=== PATIENT | male | born 1955 | race Caucasian/White ===

== ENCOUNTER 2019-01-26 08:00 | Emergency (ER) | payer BC ==
[~2019-01-26] VITALS: Ht 177.8 cm; Wt 84.4 kg
[~2019-01-26 08:00] MED LIST: CRESTOR40 MG
--- OUTSIDE RECORDS SUMMARY | 2019-01-26 08:02 | XMS REPORT | Clinical Summary ---
Author Author [facility] Organization [facility] Address Unknown Phone Unavailable Care Team Providers Care Renderer Name Role Phone Reginaldo Adan MD PCP Unavailable Allergies Comments Active Allergy Reactions Severity Noted Date Cold sweats Cyclobenzaprine Other (See 06/04/2018 Comments) Medications End Date Status Medication Sig Dispensed Refills Start Date Active atorvastatin (LIPITOR) 40 Take 40 mg by 0 MG tablet mouth daily. Active temazepam (RESTORIL) 15 Take 15 mg by 0 mg capsule mouth nightly as needed for sleep. Active testosterone (ANDROGEL) 1 Place 50 mg 0 % (25 mg/2.5gram) gel in on the skin packet daily. Active Problems No known active problems Encounters Care Team Description Date Type Specialty Julio C Miranda MD 06/04/2018 Anesthesia General Surgery Event Nikhil Guzman MD Left Femoral/Obturator Coolies 06/04/2018 Surgery General Surgery Nikhil Guzman MD 06/04/2018 Hospital General Surgery Encounter after 01/25/2018 Social History Date Tobacco Use Types Packs/Day Years Used Never Smoker Smokeless Tobacco: Never Used Alcohol Use Drinks/Week oz/Week Comments No Sex Assigned at Date Recorded Not on file Industry Job Start Date Occupation Not on file Not on file Not on file Travel End Travel History Travel Start No recent travel history available. Last Filed Vital Signs Time Taken Vital Sign Reading 06/04/2018 2:05 PM CDT Blood Pressure 119/69 06/04/2018 2:05 PM CDT Pulse 51 06/04/2018 1:40 PM CDT Temperature 36.3 C (97.3 F) 06/04/2018 2:05 PM CDT Respiratory Rate 12 06/04/2018 2:05 PM CDT Oxygen Saturation 98% - Inhaled Oxygen - Concentration 06/04/2018 11:45 AM CDT Weight 85.3 kg (188 lb) 06/04/2018 11:45 AM CDT Height 177.8 cm (5' 10") 06/04/2018 11:45 AM CDT Body Mass Index 26.98 Plan of Treatment Not on file Implants Device Identifier Shelf Expiration Date Model / Serial / Lot Implanted Type Area Manufactur er 12/20/2021 MCK2 17 100 [id number] / [id number] / [id number] Coolief Multi-Cooled Radiofrequency IPM N/A: N/A I and love and you Kit 100-4 - [id number] - IMPLANT HEALTH [id number] DEVICES Implanted: Qty: 1 on 06/04/2018 by Nikhil Guzman MD Procedures Comments Procedure Name Priority Date/Time Associated Diagnosis RADIOFREQUENCY THERMAL 06/04/2018 Degenerative joint COAGULATION, NERVE, 12:30 PM CDT disease INTERCOSTAL Special Needs BMI 28.0 after 01/25/2018 Results Not on fileafter 01/25/2018 Insurance Payer Benefit Subscriber ID Type Phone Address Plan / Group BCBS BCBS xxxxxxxxxxxxxxx PPO CHOICE PPO/[employer] PPO Advance Directives Patient has advance care planning documents on file. For more information, ganesh navarrete contact: Wilbert Pinedo [address] [place] [address]
--- OUTSIDE RECORDS SUMMARY | 2019-01-26 08:02 | XMS REPORT | Continuity of Care Document ---
Author Author Ilda mckeon Organization Interface Address Unknown Phone Unavailable Problems Problem Status Onset Date Classification Date Reported Comments Source M25.561 - PAIN IN RIGHT KNEE Active 04/18/2016 [facility] SHOULDER Active [facility] Medications Medication Details Route Status Patient Instructions Ordering Provider Order Date Source Allergies, Adverse Reactions, Alerts Substance Category Reaction Severity Reaction type Status Date Reported Comments Source Immunizations Immunization Date Given Site Status Last Updated Comments Source Results Order Name Results Value Reference Range Date Interpretation Comments Source Knee wo contrast MRI Knee wo contrast MRI EXAM: MRI of the right knee without contrast. HISTORY: Right knee pain, acute pain of right knee, avulsion fracture COMPARISON: Right knee x-rays on 04/18/2016 and 10/27/2005 TECHNIQUE: Multiplanar, multisequence MRI of the right knee without contrast. FINDINGS: Intercondylar notch: There is mild to moderate degeneration or sprain of the anterior cruciate ligament. There appears to be a small intraligamentous ganglion cyst along the anterior cruciate ligament suggesting degeneration rather than sprain. There is also mild degeneration or sprain of the proximal posterior cruciate ligament. There is no tear of the anterior cruciate ligament or posterior cruciate ligament. Collateral ligaments: The medial collateral ligament is intact. There is mild degeneration or sprain of the proximal lateral collateral ligament. There is no tear of the lateral collateral ligament. Medial compartment: There is intrasubstance degeneration in the posterior horn and body of the medial meniscus. There is no medial meniscal tear. There is high-grade cartilage loss along the central weightbearing portion of the medial femoral condyle. There is no subchondral marrow edema in the medial compartment. Lateral compartment: The lateral meniscus is intact. There is no chondral defect or subchondral marrow edema in the lateral compartment. The posteromedial and posterolateral corner structures are intact. Patellofemoral compartment: The patellar and quadriceps tendons are intact. There is partial-thickness cartilage loss and mild chondral fraying along the medial patellar facet and median patellar eminence. There is also high-grade cartilage loss along the inferomedial trochlea with minimal subchondral bone marrow edema. Other findings: There is a small to moderate joint effusion with mild synovitis. Trace fluid decompresses into the semimembranosus/gastrocnemius bursa. There is an osteochondral body anterior to the distal anterior cruciate ligament measuring up to 1 cm corresponding to the calcification seen on the prior x-ray. This is felt to represent an osteochondral body rather than an old avulsion fracture and was present on the prior x-ray on 10/27/2005. There is a suprapatellar plica. IMPRESSION: 1. Mild to moderate degeneration or sprain of the anterior cruciate ligament. There appears to be a small intraligamentous ganglion cyst along the anterior cruciate ligament suggesting degeneration rather than sprain. There is also mild degeneration or sprain of the proximal posterior cruciate ligament. There is also mild degeneration or sprain of the proximal lateral collateral ligament. There is no ligament tear. 2. No meniscal tear. There is intrasubstance degeneration in the posterior horn and body of the medial meniscus. 3. High-grade cartilage loss along the central weightbearing portion of the medial femoral condyle. 4. Partial thickness cartilage loss and mild chondral fraying along the medial patellar facet and median patellar eminence. There is also high-grade cartilage loss along the inferomedial trochlea with minimal subchondral bone marrow edema. 5. Small to moderate joint effusion with mild synovitis. There is an osteochondral body anterior to the distal anterior cruciate ligament measuring up to 1 cm corresponding to the calcification seen on the prior x-ray. This is felt to represent an osteochondral body rather than an old avulsion fracture and was present on the prior x-ray on 10/27/2005. 04/26/2016 - - Read by: Yaw Ospina MD Dictated Date/time: 04/26/16 15:44 Electronically Signed by: Yaw Ospina MD 04/26/16 15:56 FINAL REPORT [facility] [place] Knee series 3 views DX Knee series 3 views DX EXAM: XR Knee series 3 views DX DATE: 04/18/2016 1:30 PM CDT INDICATION: M25.561 Pain in right knee Pain. COMPARISON: 2004 TECHNIQUE: AP, oblique and lateral projections of right knee. DISCUSSION: Small avulsion fragment is present along the intercondylar notch region. This is seen to be more displaced compared to the previous examination. Satisfactory alignment of the joint. No soft tissue abnormality is identified. . IMPRESSION: Avulsion fracture from the intercondylar notch region likely represents an avulsion fracture secondary to subacute to chronic avulsion from an anterior cruciate ligament attachment. 04/18/2016 - - Read by: Parmjit Gillette MD Dictated Date/time: 04/18/16 15:17 Electronically Signed by: Parmjit Gillette MD 04/18/16 15:19 FINAL REPORT [facility] Vital Signs Vital Sign Value Date Comments Source Encounters Location Location Details Encounter Type Encounter Number Reason For Visit Attending Provider ADM Date DC Date Status Source [facility] [place] [facility] [id number] José Ariadne 04/19/2015 05/19/2015 [facility] [place] [facility] [id number] Reginaldo Adan 04/18/2016 04/19/2016 [facility] [place] [facility] [id number] Reginaldo Adan 04/26/2016 04/27/2016 [facility] [place] Procedures Procedure Code Date Perfomer Comments Source
--- OUTSIDE RECORDS SUMMARY | 2019-01-26 08:03 | XMS REPORT | Summary of Care ---
Author Author [facility] [place] Organization [facility] [place] Address Unknown Phone Unavailable Encounter HQ Encntr_kristen(FIN) [id number] Date(s): 04/26/16 - 04/26/16 [facility] [place] [address] [facility] [address] [place] [address] [phone] Discharge Disposition: Home Attending Physician: Reginaldo Adan MD Vital Signs No data available for this section Problem List No data available for this section Allergies, Adverse Reactions, Alerts Substance Reaction Severity Status NKDA Active Medications No data available for this section Results No data available for this section Immunizations No data available for this section Procedures No data available for this section Social History No data available for this section Assessment and Plan No data available for this section
--- OUTSIDE RECORDS SUMMARY | 2019-01-26 08:03 | XMS REPORT | Summary of Care ---
Author Author Constance Hoyt LVN Organization Unknown Address [facility] Phone Unavailable Care Team Providers Care Supervisor Inspecting Name Role Phone Constance Hoyt LVN Unavailable Unavailable MATHEW PITT N.P. Unavailable Unavailable HAWA GALICIA M.D. Unavailable Unavailable GRAYSON ORTIZ [facility], [place] LUI Unavailable Unavailable Unavailable Unavailable Functional Status Name Dates Details Functional status health issues are not documented Status: Name Dates Details Cognitive status health issues are not documented Status: Problems Name Dates Details Seasonal allergic rhinitis due to pollen (477.0, J30.1) Status: Active Encounter for screening for malignant neoplasm of prostate (V76.44, Z12.5) Status: Active History of Bursitis of left hip, unspecified bursa (726.5, M70.72) Status: Resolved Anemia (285.9, D64.9) Status: Active Bradycardia (427.89, R00.1) Status: Active Hiatal hernia (553.3, K44.9) Status: Active long-term use of drug (V58.69, Z79.899) Status: Active Psychophysiological insomnia (307.42, F51.04) Status: Active Skin atrophy (701.9, L90.9) Status: Active Flu vaccine need (V04.81, Z23) Status: Active Low back pain, episodic (724.2, M54.5) Status: Active Chronic bilateral low back pain with bilateral sciatica (724.2, M54.42) Status: Active Anxiety disorder (300.00, F41.9) Status: Active Testicular hypofunction (257.2, E29.1) Status: Active Colon cancer screening (V76.51, Z12.11) Status: Active Mixed hyperlipidemia (272.2, E78.2) Status: Active Medications Name Dates Details Atorvastatin Calcium 40 MG Oral Tablet TAKE 1 TABLET DAILY AT BEDTIME Quantity: 1 GRAYSON Bell, HAWA * Start : 28-Aug-2014 Active 90 Tablet Bottle Temazepam 30 MG Oral Capsule TAKE 1 CAPSULE AT BEDTIME NEEDED. * Quantity: 90 Refills: 0 HAAW GALICIA M.D. Active AndroGel 40.5 MG/2.5GM (1.62%) Transdermal Gel * Refills: 0 Active Naproxen 500 MG Oral Tablet TAKE 1 TABLET TWICE DAILY. CON"T DOSING FOR 3-5 DAYS BEYOND PAIN RELIEF OR 3-4 W EEKS MAX * Quantity: 60 Refills: 5 HAWA GALICIA M.D. * Start : 06-Jul-2018 Active traMADol HCl - 50 MG Oral Tablet 1-2 PO Q6 hrs PRN * Quantity: 80 Refills: 2 PITT N.P.MATHEW * Start : 06-Jul-2018 Active Escitalopram Oxalate 10 MG Oral Tablet TAKE 1 TABLET DAILY. * Quantity: 30 Refills: 3 HAWA GALICIA M.D. * Start : 06-Oct-2018 Active Allergies and Adverse Reactions Name Dates Details Flexeril TABS (Allergy) Status: Active Past Medical History Name Dates Details History of abdominal pain (V13.89, Z87.898) Status: Resolved History of acne (V13.3, Z87.2) Status: Resolved History of Acute bronchitis and bronchiolitis (466.0, J20.9) Status: Resolved History of Acute bronchitis due to infection (466.0, J20.8) Status: Resolved History of Acute pain of left knee (719.46, M25.562) Status: Resolved History of Acute pain of right knee (719.46, M25.561) Status: Resolved History of Acute upper respiratory infection (465.9, J06.9) Status: Resolved History of avulsion fracture (V15.51, Z87.81) Status: Resolved History of Back strain, initial encounter (847.9, S39.012A) Status: Resolved History of Bursitis of left hip, unspecified bursa (726.5, M70.72) Status: Resolved History of Cellulitis (682.9, L03.90) Status: Resolved History of Cheilitis (528.5, K13.0) Status: Resolved History of constipation (V12.79, Z87.19) Status: Resolved History of dermatitis (V13.3, Z87.2) Status: Resolved History of diverticulitis of colon (V1.79, Z87.19) Status: Resolved History of Influenza A (487.1, J10.1) Status: Resolved History of Need for Tdap vaccination (V06.1, Z23) Status: Resolved History of persistent cough (V12.69, Z87.09) Status: Resolved History of pharyngitis (V12.69, Z87.09) Status: Resolved History of Rotator cuff tendonitis (726.10, M75.80) Status: Resolved History of Sciatica of right side (724.3, M54.31) Status: Resolved History of Seasonal allergic rhinitis due to pollen (477.0, J30.1) Status: Resolved History of sore throat (V12.60, Z87.09) Status: Resolved History of vernal conjunctivitis (V12.49, Z86.69) Status: Resolved Procedures Procedure Dates Details History of Rotator Cuff Repair Completed History of Hernia Repair Completed History of Rotator Cuff Repair Completed 21-Jan-2015 Immunization Name Dates Details Influenza on: 02-Oct-2011 Fluzone INJ on: 31-Aug-2014 Fluzone INJ Lot #: [id number] on: 01-Sep-2015 Fluzone INJ Lot #: [id number] on: 20-Aug-2016 Fluzone Quadrivalent 0.5 ML Intramuscular Suspension Lot #: [id number] on: 28-Aug-2017 Tdap (Adacel) Lot #: [id number] on: 28-Aug-2017 Fluzone Quadrivalent 0.5 ML Intramuscular Suspension Lot #: [id number] on: 03-Sep-2018 Family History Name Dates Details Family history of disseminated malignant neoplasm (V16.9, Z80.9) Status: Active Name Dates Details Family history of Poisoning By Ethyl Alcohol Status: Active Social History Name Dates Details - Status: Name Dates Details Never smoker Vital Signs Date Test Result Details [id number] BP Systolic 123 mm[Hg] Status: Comments: Location: LUE; Position: Sitting BP Diastolic 80 mm[Hg] Status: Comments: Location: LUE; Position: Sitting Height 70 in Status: Weight 184 lb Status: Body Mass Index Calculated 26.4 kg/m2 Status: Body Surface Area Calculated 2.01 m2 Status: Temperature 97.8 f Status: Comments: Method: Temporal Heart Rate 59 /min Status: Respiration Rate 16 /min Status: Results Date Description Value Details [id number] [[facility]] LIPID PANEL CHOLESTEROL, TOTAL 154 mg/dl (Normal) Range: <200 HDL CHOLESTEROL 58 mg/dl (Normal) Range: >40 TRIGLYCERIDES 63 mg/dl (Normal) Range: <150 LDL-CHOLESTEROL 82 {MG/DL__CAL} (Normal) Comments: Reference range: <100 Desirable range <100 mg/dL for primary prevention; <70 mg/dL for patients with CHD or diabetic patients with > or=2 CHD risk factors. LDL-C is now calculated using franky Paulino calculation, which is a validated novel method providing better accuracy than the Friedewald equation in the estimation of LDL-C. Gary SS et al. BRII. 2013;310(19): 9172-6531 (http:/ /education.Tricycle/faq/SGM315) CHOL/HDLC RATIO 2.7 {CALC} (Normal) Range: <5.0 NON HDL CHOLESTEROL 96 {MG/DL__CAL} (Normal) Range: <130 Comments: For patients with diabetes plus 1 major ASCVD risk factor, treating to a non-HDL-C goal of <100 mg/dL (LDL-C of <70 mg/dL) is considered a therapeutic option. [id number] [[facility]] CMP W/EGFR GLUCOSE 90 mg/dl (Normal) Range: 65-99 Comments: Fasting reference interval UREA NITROGEN (BUN) 10 mg/dl (Normal) Range: 7-25 CREATININE 1.04 mg/dl (Normal) Range: 0.70-1.25 Comments: For patients >49 years of age, the reference limitfor Creatinine is approximately 13% higher for peopleidentified as -Citizen Of [place]. eGFR NON- 77 {ML/MIN/1.7} (Normal) Range: > OR=60 eGFR 89 {ML/MIN/1.7} (Normal) Range: > OR=60 BUN/CREATININE RATIO NOT APPLICABLE {CALC} Range: 6-22 SODIUM 140 mmol/L (Normal) Range: 135-146 POTASSIUM 4.4 mmol/L (Normal) Range: 3.5-5.3 CHLORIDE 109 mmol/L (Normal) Range: 98-110 CARBON DIOXIDE 23 mmol/L (Normal) Range: 20-32 CALCIUM 8.8 mg/dl (Normal) Range: 8.6-10.3 PROTEIN, TOTAL 6.8 g/dl (Normal) Range: 6.1-8.1 ALBUMIN 4.2 g/dl (Normal) Range: 3.6-5.1 GLOBULIN 2.6 {G/DL__CALC} (Normal) Range: 1.9-3.7 ALBUMIN/GLOBULIN RATIO 1.6 {CALC} (Normal) Range: 1.0-2.5 BILIRUBIN, TOTAL 0.6 mg/dl (Normal) Range: 0.2-1.2 ALKALINE PHSPHATASE 108 u/l (Normal) Range: 40-115 AST 22 u/l (Normal) Range: 10-35 ALT 18 u/l (Normal) Range: 9-46 :44 [[facility]] CBC (INCLUDES DIFF/PLT) WHITE BLOOD CELL COUNT 4.5 {Thousand/u} (Normal) Range: 3.8-10.8 RED BLOOD CELL COUNT 4.89 {Million/uL} (Normal) Range: 4.20-5.80 HEMAGLOBIN 13.5 g/dl (Normal) Range: 13.2-17.1 HEMATOCRIT 40.9 % (Normal) Range: 38.5-50.0 MCV 83.6 fL (Normal) Range: 80.0-100.0 MCH 27.6 pg (Normal) Range: 27.0-33.0 MCHC 33.0 g/dl (Normal) Range: 32.0-36.0 RDW 14.9 % (Normal) Range: 11.0-15.0 PLATELET COUNT 163 {Thousand/u} (Normal) Range: 140-400 MPV 9.4 fL (Normal) Range: 7.5-12.5 ABSOLUTE NEUTROPHILS 2556 {cells/uL} (Normal) Range: 2548-5275 ABSOLUTE LYMPHOCYTES 1269 {cells/uL} (Normal) Range: 850-3900 ABSOLUTE MONOCYTES 432 {cells/uL} (Normal) Range: 200-950 ABSOLUTE EOSINOPHILS 212 {cells/uL} (Normal) Range: 15-500 ABSOLUTE BASOPHILS 32 {cells/uL} (Normal) Range: 0-200 NEUTROPHILS 56.8 % (Normal) LYMPHOCYTES 28.2 % (Normal) MONOCYTES 9.6 % (Normal) EOSINOPHILS 4.7 % (Normal) BASOPHILS 0.7 % (Normal) :44 [[facility]] TESTOSTERONE, TOTAL Comments: REPORT COMMENT:FASTING:YES TESTOSTERONE, TOTAL, MALES (ADULT), [place] 199 ng/dl (Below low threshold) Range: 250-827 Comments: In hypogonadal males, Testosterone, Total, LC/MS/MS,is the recommended assay due to the diminishedaccuracy of immunoassay at levels below 250 ng/dL.This test code (80343) must be collected in ared-top tube with no gel. Plan of Care Name Dates Details Planned Observations Planned Goals not documented Instructions Name Dates Details Instructions not documented Encounters Appointment; MATHEW PITT NP Encounter Diagnosis: Problem not documented On: 05-Feb-2017 16:00 Appointment; MAGO TREADWELL M.D. Encounter Diagnosis: Problem not documented On: 09-Mar-2017 14:00 Appointment; MAGO TREADWELL M.D. Encounter Diagnosis: Problem not documented On: 10-Mar-2017 10:00 Appointment; DOMINIK ARAGON NP Encounter Diagnosis: Problem not documented On: 04-May-2017 16:15 Appointment; MATHEW PITT NP Encounter Diagnosis: Problem not documented On: 28-Aug-2017 14:00 Appointment; MATHEW PITT NP Encounter Diagnosis: Problem not documented On: 20-Oct-2017 10:30 Appointment; MATHWE PITT NP Encounter Diagnosis: Problem not documented On: 30-Oct-2017 13:30 Appointment; DOMINIK ARAGON NP Encounter Diagnosis: Problem not documented On: 19-Nov-2017 17:45 Appointment; DANIELLE HERNANDEZ P.A. Encounter Diagnosis: Problem not documented On: 28-Nov-2017 12:30 Appointment; MATHEW PITT NP Encounter Diagnosis: Problem not documented On: 20-Jan-2018 16:30 Appointment; HAWA GALICIA M.D. Encounter Diagnosis: Problem not documented On: 13-Mar-2018 9:15 Appointment; MATHEW PITT NP Encounter Diagnosis: Problem not documented On: 16-Apr-2018 10:45 Appointment; MATHEW PITT NP Encounter Diagnosis: Problem not documented On: 06-Jul-2018 16:30 Appointment; MATHEW PITT NP Encounter Diagnosis: Problem not documented On: 03-Sep-2018 10:00 Appointment; MATHEW PITT NP Encounter Diagnosis: Problem not documented On: 06-Oct-2018 15:30 Appointment; HAWA GALICIA M.D. Encounter Diagnosis: Problem not documented On: 05-Jan-2019 13:45
--- OUTSIDE RECORDS SUMMARY | 2019-01-26 08:03 | XMS REPORT | Summary of Care ---
Author Author [facility] Address Unknown Phone Unavailable Encounter HQ Shaanr_kristen(GISSELLE) [id number] Date(s): 04/18/16 - 04/18/16 [facility] [address] [facility] [place], [place] [id number] [place] [address] [phone] Discharge Disposition: Home Attending Physician: Reginaldo Adan [...]
--- OUTSIDE RECORDS SUMMARY | 2019-01-26 08:03 | XMS REPORT | Summary of Care ---
Author Organization Unknown Address Unknown Phone Unavailable Encounter HQ Ramirontr_kristen([facility]) [id number] Date(s): 04/19/15 - 05/18/15 [facility] Discharge Disposition: Home Physician Attending: José Ron MD Vital Signs No data available for [...]
--- OUTSIDE RECORDS SUMMARY | 2019-01-26 08:07 | XMS REPORT | Clinical Summary ---
Author Author [facility] Address Unknown Phone Unavailable Care Team Providers Care Manager Cleaning Name Role Phone Reginaldo Adan MD PCP [...] er 12/20/2021 MCK2 17 100 4 / [id number] / [id number] [employer] Multi-Cooled Radiofrequency IPM N/A: N/A [employer] Kit 100-4 - [id number] - IMPLANT HEALTH [id number] DEVICES Implanted: Qty: 1 on 06/04/2018 by [...] more information, ganesh navarrete contact: Wilbert Pinedo [address] [place] [address]
[2019-01-26] MEDS ORDERED: SODIUM CHLORIDE 0.9% 1000ML 1,000 ML IV ONE (08:30)
[2019-01-26] MEDS ORDERED: DICYCLOMINE HCL 20 MG/2 ML VIAL IM ONE (08:30)
[2019-01-26] MEDS ORDERED: DIATRIZOATE MEGL/DIATRIZOA SOD 30 ML BTL PO ONE (08:37)
[2019-01-26] MEDS ORDERED: KETOROLAC TROMETHAMINE 30 MG/ML VIAL IV ONE (08:45)
[2019-01-26 09:08] LABS: BASOPHILS % 0.3 % (0.0-1.0); EOSINOPHILS # (AUTO) 0.1 (0.0-0.4); EOSINOPHILS % 1.8 % (0.0-6.0); HEMATOCRIT 38.6 % (38.2-49.6); HEMOGLOBIN 12.7 g/dL (14.0-18.0); LYMPHOCYTES # (AUTO) 0.8 (1.0-3.2); LYMPHOCYTES % 11.7 % (18.0-39.1); MEAN CORPUSCULAR HEMOGLOBIN 28.2 pg (28-32); MEAN CORPUSCULAR HGB CONC 32.9 g/dL (31-35); MEAN CORPUSCULAR VOLUME 85.6 fL (81-99); MONOCYTES # (AUTO) 0.7 (0.2-0.8); MONOCYTES % 9.9 % (4.4-11.3); NEUTROPHILS # (AUTO) 5.2 (2.1-6.9); PLATELET COUNT 144 x10e3/uL (140-360); RED BLOOD COUNT 4.51 x10e6/uL (4.3-5.7); RED CELL DISTRIBUTION WIDTH 15.3 % (11.7-14.4)
[2019-01-26 09:26] LABS: ALBUMIN 3.9 g/dL (3.5-5.0); ALBUMIN/GLOBULIN RATIO 1.3 (0.8-2.0); ANION GAP 13.1 mmol/L (8-16); CALCIUM 9.2 mg/dL (8.4-10.2); CREATININE, SERUM 1.39 mg/dL (0.72-1.25); POTASSIUM 4.1 mmol/L (3.5-5.1)
[2019-01-26 09:33] LABS: CLARITY,URINE CLEAR (CLEAR); COLOR,URINE YELLOW (YELLOW); LEUKOCYTE ESTERASE ,URINE NEGATIVE (NEGATIVE); NITRITE,URINE NEGATIVE (NEGATIVE)
[2019-01-26 09:34] LABS: BILIRUBIN,URINE NEGATIVE (NEGATIVE); KETONES,URINE NEGATIVE (NEGATIVE); PROTEIN,URINE DIPSTICK NEGATIVE (NEGATIVE); URINE UROBILINOGEN 0.2 mg/dL (0.2 - 1); WBC,URINE (MAN) 0-5 /HPF (0-5)
[2019-01-26 09:35] LABS: BACTERIA,URINE RARE /HPF; EPITHELIAL CELLS,URINE FEW /LPF; RBC,URINE 0-5 /HPF (0-5)
[2019-01-26] MEDS ORDERED: ATORVASTATIN CA40 MG PO (10:37)
[2019-01-26] MEDS ORDERED: TEMAZEPAM15 MG PO (10:37)
[2019-01-26] MEDS ORDERED: NAPROXEN500 MG PO (10:37)
[2019-01-26] MEDS ORDERED: ESCITALOPRAM OX10 MG PO (10:37)
--- NOTE | 2019-01-26 11:04 | NUR ---
Walking rounds with Sebastian. Patient in no distress at this time.
--- NOTE | 2019-01-26 11:04 | NUR ---
Bedside report recieved from Amos RN, assumed care at this time. Pt awake, alert and has no complaints at this time. no signs of acute distress noted.
[2019-01-26] MEDS ORDERED: IOPAMIDOL 370 MG/ML 200 ML INFUS..BTL INJ ONE (11:34)
[2019-01-26] MEDS ORDERED: SODIUM CHLORIDE 0.9% 50ML 50 ML ONE (11:34)
--- NOTE | 2019-01-26 12:22 | Diagnostic Imaging Report ---
EXAM: CT Abdomen and Pelvis WITH contrast INDICATION: Left lower quadrant pain COMPARISON: None. TECHNIQUE: Abdomen and pelvis were scanned utilizing a multidetector helical scanner from the lung base to the pubic symphysis after administration of IV contrast. Coronal and sagittal reformations were obtained. Routine protocol was performed. Scan was performed when during portal venous phase. Dose modulation, iterative reconstruction, and/or weight based adjustment of the mA/kV was utilized to reduce the radiation dose to as low as reasonably achievable. IV CONTRAST: 100 mL of Isovue-370 ORAL CONTRAST: 30 cc Gastrografin RADIATION DOSE: Total DLP: 818.47 mGy*cm Estimated effective dose: (DLP x 0.015 x size factor) mSv COMPLICATIONS: None FINDINGS: LINES and TUBES: None. LOWER THORAX: Lung bases clear. Heart size normal. There is wall thickening of the distal esophagus which may be related to small hiatus hernia. HEPATOBILIARY: No focal hepatic lesions. No biliary ductal dilation. GALLBLADDER: No radio-opaque stones or sludge. No wall thickening. SPLEEN: No splenomegaly. PANCREAS: No focal masses or ductal dilatation. ADRENALS: No adrenal nodules KIDNEYS/URETERS: Kidneys enhance symmetrically. There is mild left hydronephrosis and hydroureter with a 6 mm calculus at the left UVJ. There is no dilatation of the right collecting system or ureter. A punctate 1 to 2 mm calcification adjacent to the distal right ureter likely represents partial voluming of an adjacent calcification rather than a distal ureteral calculus on the right. No cystic or solid mass lesions. No intrarenal calculi are seen. GI TRACT: No abnormal distention, wall thickening, or evidence of bowel obstruction. There is sigmoid diverticulosis with mild wall thickening that may indicate chronic diverticular disease. No CT evidence for acute diverticulitis. Appendix is normal. PELVIC ORGANS/BLADDER: Urinary bladder has an unremarkable appearance. No discrete abnormal mass or fluid collection in the pelvis. LYMPH NODES: No dominant lymph node mass is seen in the abdomen, retroperitoneum or pelvis. VESSELS: The abdominal aorta is atherosclerotic with calcified and noncalcified plaque. IVC and portal system appear unremarkable. PERITONEUM / RETROPERITONEUM: No pneumoperitoneum or ascites. BONES: No acute or suspicious bony lesions. There is degenerative change at the hips, most prominent on the left with subchondral cyst formation. There is degenerative change in the lumbar spine. There is disc space narrowing at L5-S1. SOFT TISSUES: Superficial surrounding soft tissues show bilateral inguinal hernias containing fat. IMPRESSION: 1. There is a 6 mm calculus at the left UVJ with mild left hydronephrosis and hydroureter. 2. Sigmoid diverticulosis with wall thickening suggesting chronic diverticular disease. No CT evidence for acute diverticulitis. 3. Wall thickening of the distal esophagus. This may be related to small hiatus hernia although mucosal lesion is not excluded. Consider endoscopic visualization. 4. Degenerative changes in the lumbar spine and hips with advanced degenerative change particularly at the left hip. Staff: Juan Signed by: Dr. Savage Martinez M.D. on 01/26/2019 12:18 PM
[2019-01-26 13:28] VITALS: BP 120/76
== END 2019-01-26 13:45 | disposition home or self-care (01) ==
LOC: ER 08:04
DX: R10.32 Left lower quadrant pain (principal); M54.5 Low back pain; N20.0 Calculus of kidney; N13.30 Unspecified hydronephrosis
CPT/HCPCS: 36415; 74177; 80053; 81001; 83690; 85025; 99285; J0500; J1885; J7030; Q9967